=== PATIENT | male | born 1955 ===

== ENCOUNTER → 2021-08-05 10:04 | Outpatient (CLI) | payer MEDICARE, SELFPAY ==
[2021-08-05 19:38] LABS: Add Manual Diff / Slide Review NO; Basophils Absolute Auto 0 /uL (0-100); Basophils Percent Auto 0.6 % (0-2); Eosinophils Absolute Auto 100 /uL (0-450); Eosinophils Percent Auto 1.5 % (2-4); Hematocrit 42.3 % (41-53); Lymphocytes Absolute Auto 3100 /uL (1100-4500); Lymphocytes Percent Auto 42.1 % (25-40); Mean Corpuscular Hemoglobin 29.5 PG (26-34); Mean Corpuscular Volume 89.3 fL (80-100); Monocytes Absolute Auto 700 /uL (0-900); Monocytes Percent Auto 9.5 % (3-14); Neutrophils Absolute Auto 3400 /uL (1500-7000); Neutrophils Percent Auto 46.3 % (50-75); Platelet Count 248 X10^3/uL (150-400); Red Blood Cell Count 4.74 X10^6/uL (4.5-5.9); Red Cell Distribution Width 13.4 % (11.6-14.8); White Blood Cell Count 7.3 X10^3/uL (4.5-11.0)
[2021-08-05 19:49] LABS: Alanine Aminotransferase 23 IU/L (<50); Albumin 4.1 g/dL (3.5-5.0); Albumin Globulin Ratio 1.4 (1.0-2.8); Alkaline Phosphatase 90 U/L (38-126); Aspartate Aminotransferase 31 IU/L (17-59); BUN Creatinine Ratio 14.6 (6-22); Bilirubin Total 0.4 mg/dL (0.2-1.3); Blood Urea Nitrogen 12 mg/dL (9-20); Calcium 9.5 mg/dL (8.4-10.2); Carbon Dioxide 26 mmol/L (22-32); Chloride 103 mmol/L (98-107); Cholesterol 228 mg/dL (140-199); Estimated Glomerular Filt Rate > 60.0 mL/min (>60); Glucose 104 mg/dL (80-110); HDL Cholesterol 57 mg/dL (40-60); HEMOLYSIS < 15 (0-50); LDL Cholesterol Calculated 137 mg/dL (<100); Potassium 4.2 mmol/L (3.4-5.1); Sodium 139 mmol/L (137-145); Total Protein 7.1 g/dL (6.3-8.2); Triglycerides 168 mg/dL (35-150)
[2021-08-05 20:16] LABS: Prostate Specific Antigen 0.473 ng/mL (0.10-4.00)
[2021-08-05 20:46] LABS: Urine N gonorrhoeae NOT DETECTED
[2021-08-05 21:17] LABS: Urine Chlamydia NOT DETECTED
[2021-08-06 08:10] LABS: RPR Screen Non Reactive (Non Reactive)
[2021-08-06 19:03] LABS: HIV 1 & 2 Ab/Ag 4th Gen Combo NEGATIVE (NEGATIVE); Hep C Virus Ab w/Reflex Quant NEGATIVE s/c (NEGATIVE)
== END ==
PROVIDERS: PCP Physician Assistant; Visit Provider Physician Assistant
DX: Z11.3 Encounter for screening for infections with a predominantly sexual mode of transmission (principal); Z12.11 Encounter for screening for malignant neoplasm of colon; Z12.5 Encounter for screening for malignant neoplasm of prostate; Z86.2 Personal history of diseases of the blood and blood-forming organs and certain disorders involving the immune mechanism
CPT/HCPCS: 80053; 80061; 84153; 85025; 86592; 86803; 87389; 87491; 87591

== ENCOUNTER → 2023-05-26 10:55 | Outpatient (CLI) | payer MEDICARE, SELFPAY ==
[2023-05-26 19:10] LABS: Add Manual Diff / Slide Review NO; Basophils Absolute Auto 0 /uL (0-100); Basophils Percent Auto 0.5 % (0-2); Eosinophils Absolute Auto 200 /uL (0-450); Eosinophils Percent Auto 2.4 % (2-4); Hematocrit 43.1 % (41-53); Hemoglobin 14.5 g/dL (13.5-17.5); Lymphocytes Absolute Auto 2900 /uL (1100-4500); Mean Corpuscular HGB Conc 33.6 % (30-36); Mean Corpuscular Hemoglobin 29.4 PG (26-34); Mean Corpuscular Volume 87.7 fL (80-100); Monocytes Absolute Auto 1000 /uL (0-900); Neutrophils Absolute Auto 3500 /uL (1500-7000); Neutrophils Percent Auto 46.1 % (50-75); Platelet Count 197 X10^3/uL (150-400); Red Blood Cell Count 4.91 X10^6/uL (4.5-5.9); Red Cell Distribution Width 13.2 % (11.6-14.8); White Blood Cell Count 7.6 X10^3/uL (4.5-11.0)
[2023-05-26 19:19] LABS: Alanine Aminotransferase 30 IU/L (<50); Albumin 4.1 g/dL (3.5-5.0); Albumin Globulin Ratio 1.3 (1.0-2.8); Alkaline Phosphatase 89 U/L (38-126); Aspartate Aminotransferase 35 IU/L (17-59); BUN Creatinine Ratio 12.2 (6-22); Bilirubin Total 0.3 mg/dL (0.2-1.3); Blood Urea Nitrogen 9 mg/dL (9-20); Calcium 9.4 mg/dL (8.4-10.2); Carbon Dioxide 27 mmol/L (22-32); Chloride 103 mmol/L (98-107); Cholesterol 181 mg/dL (140-199); Estimated Glomerular Filt Rate > 60 mL/min (>60); Globulin 3.1 g/dL (1.7-4.1); Glucose 97 mg/dL (80-110); HDL Cholesterol 55 mg/dL (40-60); HEMOLYSIS < 15 (0-50); LDL Cholesterol Calculated 104 mg/dL (<100); Potassium 4.4 mmol/L (3.4-5.1); Sodium 138 mmol/L (137-145); Total Protein 7.2 g/dL (6.3-8.2); Triglycerides 109 mg/dL (35-150)
[2023-05-26 19:45] LABS: Prostate Specific Antigen 0.499 ng/mL (0.10-4.00)
[2023-05-26 19:46] LABS: TSH w/ Reflex to FT4 1.32 uIU/mL (0.47-4.68)
[2023-05-26 19:49] LABS: Ferritin 58 ng/mL (18-464)
== END ==
PROVIDERS: PCP Family Medicine; Visit Provider Family Medicine
DX: R53.83 Other fatigue (principal); Z00.00 Encounter for general adult medical examination without abnormal findings; Z12.9 Encounter for screening for malignant neoplasm, site unspecified; Z13.1 Encounter for screening for diabetes mellitus; Z13.6 Encounter for screening for cardiovascular disorders; Z23 Encounter for immunization; Z71.89 Other specified counseling; Z86.2 Personal history of diseases of the blood and blood-forming organs and certain disorders involving the immune mechanism
CPT/HCPCS: 80053; 80061; 82728; 84153; 84443; 85025

== ENCOUNTER → 2024-06-22 09:31 | Outpatient (CLI) | payer MEDICARE, SELFPAY ==
[2024-06-22 19:10] LABS: Cholesterol 218 mg/dL (140-199); Glucose 97 mg/dL (80-110); HDL Cholesterol 57 mg/dL (40-60); LDL Cholesterol Calculated 121 mg/dL (<100); Triglycerides 202 mg/dL (35-150)
[2024-06-22 19:39] LABS: Hep C Virus Ab w/Reflex Quant NEGATIVE s/c (NEGATIVE)
== END ==
PROVIDERS: PCP Family Medicine; Visit Provider Family Medicine
DX: Z13.1 Encounter for screening for diabetes mellitus (principal); Z12.5 Encounter for screening for malignant neoplasm of prostate; Z13.6 Encounter for screening for cardiovascular disorders; Z11.59 Encounter for screening for other viral diseases
CPT/HCPCS: 80061; 82947; 86803; G0103